=== PATIENT | female | born 1990 | race Caucasian/White ===

== ENCOUNTER 2016-09-26 07:12 | Emergency (ER) | payer OTHER ==
[~2016-09-26] VITALS: Ht 170.2 cm; Wt 92.0 kg
[~2016-09-26 07:12] MED LIST: IBUP800T23 PO
[2016-09-26 07:15] VITALS: BP 189/115; PULSE 86; RESP 16; TEMP 97.8; O2SAT 98
[2016-09-26] MEDS ORDERED: AMLO5TAB2 PO (07:32)
[2016-09-26] MEDS ORDERED: LISI10TA PO (07:32)
[2016-09-26] MEDS ORDERED: LABE100T2 PO (07:32)
[2016-09-26] MEDS ORDERED: LEXA5TAB PO (07:44)
[2016-09-26] MEDS ORDERED: LITH300C2 PO (07:44)
[2016-09-26] MEDS ORDERED: FAMOTIDINE 20 MG TAB PO ONE (07:45)
[2016-09-26] MEDS ORDERED: DICYCLOMINE HCL 10 MG CAP PO ONE (07:45)
[2016-09-26] MEDS ORDERED: SODIUM CHLORIDE 0.9% FLUSH 5 ML FLUSH IVF PRN (07:45)
[2016-09-26 07:46] LABS: AUTOMATED NEUTROPHIL # 5.1 TH/MM3 (1.8-7.7); BASOPHIL # 0.1 TH/MM3 (0-0.2); BASOPHIL % 0.9 % (0.0-2.0); EOSINOPHIL # 0.4 TH/MM3 (0-0.4); EOSINOPHIL % 5.4 % (0.0-4.0); HEMATOCRIT 36.3 % (35.0-46.0); LYMPH % 19.8 % (9.0-44.0); LYMPHOCYTE # 1.5 TH/MM3 (1.0-4.8); MEAN CELL VOLUME 77.1 FL (80.0-100.0); MEAN CORPUSCULAR HEMOGLOBIN 24.9 PG (27.0-34.0); MEAN CORPUSCULAR HGB CONC 32.3 % (32.0-36.0); MONO % 7.2 % (0.0-8.0); NEUT % 66.7 % (16.0-70.0); PLATELET COUNT 352 TH/MM3 (150-450); RED BLOOD COUNT 4.71 MIL/MM3 (4.00-5.30); RED CELL DISTRIBUTION WIDTH 14.3 % (11.6-17.2); WHITE BLOOD COUNT 7.6 TH/MM3 (4.0-11.0)
[2016-09-26 07:49] LABS: HEMO FLAGS AUTO DIFF
[2016-09-26 07:59] LABS: BACTERIA, URINE RARE /hpf; BLOOD, URINE MOD (NEG); COMMENT (UR) CULT NOT INDICATED; CULTURE IF INDICATED CULT NOT INDICATED; GLUCOSE,URINE NEG (NEG); KETONE, URINE NEG (NEG); MUCUS URINE FEW /lpf (OCC); NITRITE,URINE NEG (NEG); SQUAMOUS EPITHELIAL CELL URINE 1 /hpf (0-5); URINE COLOR YELLOW (YELLW/STRAW)
[2016-09-26] MEDS ORDERED: BENT20TA PO (08:01)
[2016-09-26] MEDS ORDERED: RANI150C PO (08:01)
--- NOTE | 2016-09-26 08:01 | PD ---
HPI Chief Complaint: Abdominal Pain Time Seen by Provider: 07:20 Travel History International Travel<30 days: No Contact w/Intl Traveler<30days: No Traveled to known affect area: No History of Present Illness HPI 26-year-old woman who presents emergency room complaining of stomach pain, ongoing for the past several weeks off and on. States she's had some intermittent diarrhea as well. Little bit of nausea but no vomiting. Appetite been normal. Waits been normal. Pain is in the mid abdomen, radiates diffusely. No urinary symptoms. No vaginal discharge or vaginal bleeding. Last initial period was 2-3 weeks ago was normal. She sexually active one male partner. Only abdominal surgical history is previous cholecystectomy. She thinks she may have a periumbilical hernia but it doesn't really bother her. No history of previous similar symptoms. No other complaints. History Past Medical History Narrative Medical Hypertension CJD Anxiety/depression Bipolar disorder Tetanus Vaccination: > 5 Years Influenza Vaccination: No LMP: 09/13/15 : 5 Para: 2 Dilation and Curettage (D&C): Yes Social History Alcohol Use: No Tobacco Use: No Allergies-Medications (Allergen,Severity, Reaction): Coded Allergies: Ceftin (Verified Allergy, Severe, 09/26/16) Cipro (Verified Allergy, Severe, 09/26/16) Sulfa (Verified Allergy, Severe, 09/26/16) Reported Meds & Prescriptions Reported Meds & Active Scripts Active Bentyl (Dicyclomine HCl) 20 Mg Tab 20 Mg PO QID PRN Ranitidine (Ranitidine HCl) 150 Mg Cap 150 Mg PO BID Reported Lexapro (Escitalopram Oxalate) 5 Mg Tab 5 Mg PO DAILY [place] Carbonate 300 Mg Cap 300 Mg PO TID Labetalol (Labetalol HCl) 100 Mg Tab 100 Mg PO BID Amlodipine (Amlodipine Besylate) 5 Mg Tab 5 Mg PO DAILY Lisinopril-Hctz 10-12.5 Mg Tab 1 Tab PO DAILY Review of Systems Except as stated in HPI: all other systems reviewed are Neg Physical Exam Narrative GENERAL: Well-appearing 26 year-old woman, no acute distress. SKIN: Warm and dry. CARDIOVASCULAR: Regular rate and rhythm. No murmur appreciated. RESPIRATORY: No accessory muscle use. Clear to auscultation. Breath sounds equal bilaterally. GASTROINTESTINAL: Abdomen soft, non-tender, nondistended. Hepatic and splenic margins not palpable. MUSCULOSKELETAL: No obvious deformities. No clubbing. No cyanosis. No edema. NEUROLOGICAL: Awake and alert. No obvious cranial nerve deficits. Motor grossly within normal limits. Normal speech. PSYCHIATRIC: Appropriate mood and affect; insight and judgment normal. Data Data Last Documented VS Vital Signs Date Time Temp Pulse Resp B/P Pulse Ox O2 Delivery O2 Flow Rate FiO2 09/26/16 07:15 97.8 86 16 189/115 98 Room Air Orders Complete Blood Count With Diff (09/26/16 07:32) Comprehensive Metabolic Panel (09/26/16 07:32) Lipase (09/26/16 07:32) Urinalysis - C+S If Indicated (09/26/16 07:32) Iv Access Insert/Monitor (09/26/16 07:32) Sodium Chloride 0.9% Flush (Ns Flush) (09/26/16 07:45) Ed Urine Pregnancytest Poc (09/26/16 07:32) Dicyclomine (Bentyl) (09/26/16 07:45) Famotidine (Pepcid) (09/26/16 07:45) Labs Laboratory Tests Test 09/26/16 07:41 White Blood Count 7.6 TH/MM3 Red Blood Count 4.71 MIL/MM3 Hemoglobin 11.7 GM/DL Hematocrit 36.3 % Mean Corpuscular Volume 77.1 FL Mean Corpuscular Hemoglobin 24.9 PG Mean Corpuscular Hemoglobin 32.3 % Concent Red Cell Distribution Width 14.3 % Platelet Count 352 TH/MM3 Mean Platelet Volume 8.3 FL Neutrophils (%) (Auto) 66.7 % Lymphocytes (%) (Auto) 19.8 % Monocytes (%) (Auto) 7.2 % Eosinophils (%) (Auto) 5.4 % Basophils (%) (Auto) 0.9 % Neutrophils # (Auto) 5.1 TH/MM3 Lymphocytes # (Auto) 1.5 TH/MM3 Monocytes # (Auto) 0.5 TH/MM3 Eosinophils # (Auto) 0.4 TH/MM3 Basophils # (Auto) 0.1 TH/MM3 CBC Comment AUTO DIFF Differential Comment AUTO DIFF CONFIRMED Platelet Estimate NORMAL Platelet Morphology Comment NORMAL Red Cell Morphology Comment NORMAL Urine Color YELLOW Urine Turbidity CLEAR Urine pH 8.0 Urine Specific [place] 1.013 Urine Protein 30 mg/dL Urine Glucose (UA) NEG mg/dL Urine Ketones NEG mg/dL Urine Occult Blood MOD Urine Nitrite NEG Urine Bilirubin NEG Urine Urobilinogen LESS THAN 2.0 MG/DL Urine Leukocyte Esterase NEG Urine RBC 12 /hpf Urine WBC 1 /hpf Urine Squamous Epithelial 1 /hpf Cells Urine Bacteria RARE /hpf Urine Mucus FEW /lpf Microscopic Urinalysis Comment CULT NOT INDICATED Sodium Level 139 MEQ/L Potassium Level 3.4 MEQ/L Chloride Level 106 MEQ/L Carbon Dioxide Level 27.2 MEQ/L Anion Gap 6 MEQ/L Blood Urea Nitrogen 6 MG/DL Creatinine 0.63 MG/DL Estimat Glomerular Filtration 113 ML/MIN Rate Random Glucose 97 MG/DL Calcium Level 8.5 MG/DL Total Bilirubin 0.3 MG/DL Aspartate Amino Transf 4 U/L (AST/SGOT) Alanine Aminotransferase 13 U/L (ALT/SGPT) Alkaline Phosphatase 82 U/L Total Protein 7.3 GM/DL Albumin 3.4 GM/DL Lipase 90 U/L [facility] Medical Decision Making Medical Screen Exam Complete: Yes Emergency Medical Condition: Yes Interpretation(s) LABS: CBC is unremarkable. CMP is unremarkable. Lipase is normal. UA was some hematuria. Some protein. Differential Diagnosis Enteritis, colitis, functional abdominal pain, IBD, IBS, other Narrative Course Medical decision making 26-year-old woman with abdominal pain, diarrhea, looks well. Benign exam. We' ll check screening labs. Supportive treatment. FINAL: Labs unremarkable with exception of some hematuria. Probably contaminant. Patient does have some chronic kidney disease. Discussed this with her and she will follow-up. Diagnosis Primary Impression: Abdominal pain Qualified Code: R10.84 - Generalized abdominal pain Additional Instructions: Take Bentyl and ranitidine as prescribed. Follow-up with your regular doctor if you're not completely well in the next 5- 7 days. Return to emergency department for any worsening abdominal pain, high fevers, bloody diarrhea, or any other new or worsening symptoms. Med/Other Pt SpecificInfo: Prescription(s) given Scripts Dicyclomine (Bentyl)20 Mg Tab20 Mg PO QID PRN (ABDOMINAL CRAMPING) #20 TAB Prov:Dariel Davila MD 09/26/16 Ranitidine 150 Mg [id number] Mg PO BID #60 CAP Prov:Dariel Davila MD 09/26/16 Disposition: 01 DISCHARGE HOME Condition: Stable Dariel Davila MD Sep 26, 2016 08:01
[2016-09-26 08:05] LABS: ANION GAP 6 MEQ/L (5-15); AST (GOT) 4 U/L (15-37); BICARBONATE 27.2 MEQ/L (21.0-32.0); BLOOD UREA NITROGEN 6 MG/DL (7-18); CHLORIDE 106 MEQ/L (98-107); GLOMERULAR FILTRATION RATE 113 ML/MIN (>89); POTASSIUM 3.4 MEQ/L (3.5-5.1); SODIUM (NA) 139 MEQ/L (136-145)
[2016-09-26 08:08] LABS: ALKALINE PHOSPHATASE 82 U/L (45-117); ALT (GPT) 13 U/L (10-53); TOTAL BILIRUBIN ADULT 0.3 MG/DL (0.2-1.0)
[2016-09-26 08:34] LABS: PLATELET ESTIMATE SMEAR NORMAL (NORMAL); PLATELET MORPHOLOGY NORMAL (NORMAL); SCAN/DIFF AUTO DIFF CONFIRMED
== END 2016-09-26 09:46 | disposition home or self-care (01) ==
LOC: NEPE 07:12
DX: R10.9 Unspecified abdominal pain (principal); I12.9 Hypertensive chronic kidney disease with stage 1 through stage 4 chronic kidney disease, or unspecified chronic kidney disease; N18.9 Chronic kidney disease, unspecified
CPT/HCPCS: 80053; 81001; 83690; 84703; 85025; 99284

== ENCOUNTER 2016-09-28 20:52 | Emergency (ER) | payer OTHER ==
[~2016-09-28] VITALS: Ht 170.2 cm; Wt 90.9 kg
[~2016-09-28 20:52] MED LIST changes: +AMLO5TAB2 PO; +BENT20TA PO; -IBUP800T23 PO; +LABE100T2 PO; +LEXA5TAB PO; +LISI10TA PO; +LITH300C2 PO; +RANI150C PO
[2016-09-28 20:53] VITALS: BP 171/101; PULSE 89; RESP 16; TEMP 97.8; O2SAT 96
[2016-09-28 21:57] LABS: BACTERIA, URINE OCC /hpf; BLOOD, URINE MOD (NEG); COMMENT (UR) CULT NOT INDICATED; CULTURE IF INDICATED CULT NOT INDICATED; GLUCOSE,URINE NEG (NEG); HYALINE CAST, URINE 5 /lpf (RARE); KETONE, URINE TRACE mg/dL (NEG); MUCUS URINE MANY /lpf (OCC); NITRITE,URINE NEG (NEG); PH, URINE 5.5 (5.0-8.5); SQUAMOUS EPITHELIAL CELL URINE 3 /hpf (0-5); URINE COLOR YELLOW (YELLW/STRAW)
[2016-09-29 00:27] LABS: HEMATOCRIT 36.7 % (35.0-46.0); MEAN CELL VOLUME 75.7 FL (80.0-100.0); MEAN CORPUSCULAR HEMOGLOBIN 25.1 PG (27.0-34.0); MEAN CORPUSCULAR HGB CONC 33.1 % (32.0-36.0); PLATELET COUNT 377 TH/MM3 (150-450); RED BLOOD COUNT 4.85 MIL/MM3 (4.00-5.30); RED CELL DISTRIBUTION WIDTH 14.3 % (11.6-17.2); REVIEW FLAG FINAL; WHITE BLOOD COUNT 11.1 TH/MM3 (4.0-11.0)
[2016-09-29 00:43] LABS: BICARBONATE 28.9 MEQ/L (21.0-32.0); POTASSIUM 3.4 MEQ/L (3.5-5.1)
[2016-09-29] MEDS ORDERED: LIDOCAINE VISCOUS 2% SOLN 15 ML UDC PO ONE (01:15)
[2016-09-29] MEDS ORDERED: ONDANSETRON HCL 4 MG/2 ML VIAL IM ONE (01:15)
[2016-09-29] MEDS ORDERED: ALUMINUM/MAGNESIUM/SIMETH 30 ML CUP PO ONE (01:15)
[2016-09-29] MEDS ORDERED: DICYCLOMINE HCL 10 MG CAP PO ONE (01:15)
[2016-09-29 01:24] LABS: INDIRECT BILIRUBIN 0.2 MG/DL (0.0-0.8); TOTAL BILIRUBIN ADULT 0.3 MG/DL (0.2-1.0)
[2016-09-29] MEDS ORDERED: LOMO2.5T PO (02:19)
--- NOTE | 2016-09-29 02:19 | PD ---
HPI Chief Complaint: Abdominal Pain Time Seen by Provider: 00:46 Travel History International Travel<30 days: No Contact w/Intl Traveler<30days: No Traveled to known affect area: No History of Present Illness HPI 26-year-old female arrives with abdominal pain. It has been present for weeks. She was seen and evaluated here for the same complaint a few days ago. Blood work including a CMP and lipase and urinalysis and urine were normal. She was sent home with Bentyl and Zantac. She reports marginal improvement with each. She's had no fever nausea or vomiting. She has had burning diarrhea , nonbloody. She reports a history of hernia diagnosed on CT scan. She cannot feel a bulge or mass on her abdominal wall or groin. She offers no urinary complaint. Last menstruation was about 3-1/2 weeks prior. No vaginal bleeding or discharge. Appetite is slightly decreased due to pain with eating. Pain seems to be better at night while she is sleeping. PFSH Past Medical History Bipolar Disorder: Yes Diminished Hearing: No Hypertension: Yes Inguinal Hernia: Yes Psychiatric: Yes Tetanus Vaccination: Unknown Influenza Vaccination: No ?: Not LMP: Sep 06 : 5 Para: 2 Miscarriage: 1 : 2 Dilation and Curettage (D&C): Yes Past Surgical History Cholecystectomy: Yes Ear Surgery: Yes (TUBES ) Tonsillectomy: Yes (T&A) Social History Alcohol Use: No Tobacco Use: No Substance Use: No Allergies-Medications (Allergen,Severity, Reaction): Coded Allergies: Ceftin (Verified Allergy, Severe, 09/26/16) Cipro (Verified Allergy, Severe, 09/26/16) Sulfa (Verified Allergy, Severe, 09/26/16) Reported Meds & Prescriptions Reported Meds & Active Scripts Active Lomotil (Diphenoxylate-Atropine) 2.5-0.025 Mg Tab 1 Tab PO Q6H PRN Bentyl (Dicyclomine HCl) 20 Mg Tab 20 Mg PO QID PRN Ranitidine (Ranitidine HCl) 150 Mg Cap 150 Mg PO BID Reported Lexapro (Escitalopram Oxalate) 5 Mg Tab 5 Mg PO DAILY [place] Carbonate 300 Mg Cap 300 Mg PO TID Labetalol (Labetalol HCl) 100 Mg Tab 100 Mg PO BID Amlodipine (Amlodipine Besylate) 5 Mg Tab 5 Mg PO DAILY Lisinopril-Hctz 10-12.5 Mg Tab 1 Tab PO DAILY Review of Systems Except as stated in HPI: all other systems reviewed are Neg General / Constitutional: No: Fever, Chills Gastrointestinal: Positive: Diarrhea, Abdominal Pain Physical Exam Narrative GENERAL: 26-year-old female, well-nourished well-developed no acute distress SKIN: Warm and dry. HEAD: Atraumatic. Normocephalic. EYES: Pupils equal and round. No scleral icterus. No injection or drainage. ENT: No nasal bleeding or discharge. Mucous membranes pink and moist. NECK: Trachea midline. No JVD. CARDIOVASCULAR: Regular rate and rhythm. No murmur appreciated. RESPIRATORY: No accessory muscle use. Clear to auscultation. Breath sounds equal bilaterally. GASTROINTESTINAL: Abdomen is soft. There is no appreciable hernia or abdominal wall defect. There is minimal tenderness in the epigastrium. No tenderness in the right upper quadrant/negative Thurman sign as of the expected; history of cholecystectomy years ago. No tenderness at McBurney's point MUSCULOSKELETAL: No obvious deformities. No clubbing. No cyanosis. No edema. NEUROLOGICAL: Awake and alert. No obvious cranial nerve deficits. Motor grossly within normal limits. Normal speech. PSYCHIATRIC: Appropriate mood and affect; insight and judgment normal. Data Data Last Documented VS Vital Signs Date Time Temp Pulse Resp B/P Pulse Ox O2 Delivery O2 Flow Rate FiO2 09/29/16 00:55 16 09/28/16 20:53 97.8 89 171/101 96 Room Air Mild hypertension observed which improved during ER stay Orders Urinalysis - C+S If Indicated (09/28/16 21:01) Cbc No Diff, Includes Plts (09/29/16 00:12) Basic Metabolic Panel (Bmp) (09/29/16 00:12) Hepatic Functional Panel (09/29/16 00:57) Lipase (09/29/16 00:57) Ondansetron Inj (Zofran Inj) (09/29/16 01:15) Dicyclomine (Bentyl) (09/29/16 01:15) Al-Mag Hy-Si 40-40-4 Mg/Ml Liq (Mag-Al P (09/29/16 01:15) Lidocaine 2% Viscous (Xylocaine 2% Visco (09/29/16 01:15) Labs Laboratory Tests Test 09/28/16 09/29/16 21:08 00:12 Urine Color YELLOW Urine Turbidity HAZY Urine pH 5.5 Urine Specific [place] 1.026 Urine Protein 100 mg/dL Urine Glucose (UA) NEG mg/dL Urine Ketones TRACE mg/dL Urine Occult Blood MOD Urine Nitrite NEG Urine Bilirubin NEG Urine Urobilinogen 2.0 MG/DL Urine Leukocyte Esterase NEG Urine RBC 23 /hpf Urine WBC 3 /hpf Urine Squamous Epithelial 3 /hpf Cells Urine Bacteria OCC /hpf Urine Hyaline Casts 5 /lpf Urine Mucus MANY /lpf Microscopic Urinalysis Comment CULT NOT INDICATED White Blood Count 11.1 TH/MM3 Red Blood Count 4.85 MIL/MM3 Hemoglobin 12.2 GM/DL Hematocrit 36.7 % Mean Corpuscular Volume 75.7 FL Mean Corpuscular Hemoglobin 25.1 PG Mean Corpuscular Hemoglobin 33.1 % Concent Red Cell Distribution Width 14.3 % Platelet Count 377 TH/MM3 Mean Platelet Volume 8.5 FL Sodium Level 141 MEQ/L Potassium Level 3.4 MEQ/L Chloride Level 105 MEQ/L Carbon Dioxide Level 28.9 MEQ/L Anion Gap 7 MEQ/L Blood Urea Nitrogen 9 MG/DL Creatinine 0.61 MG/DL Estimat Glomerular Filtration 118 ML/MIN Rate Random Glucose 91 MG/DL Calcium Level 8.9 MG/DL Total Bilirubin 0.3 MG/DL Direct Bilirubin 0.1 MG/DL Indirect Bilirubin 0.2 MG/DL Aspartate Amino Transf 4 U/L (AST/SGOT) Alanine Aminotransferase 14 U/L (ALT/SGPT) Alkaline Phosphatase 89 U/L Total Protein 8.3 GM/DL Albumin 4.0 GM/DL Lipase 92 U/L [facility] Medical Decision Making Medical Screen Exam Complete: Yes Emergency Medical Condition: Yes Differential Diagnosis Constipation, Gastritis, Acute Cholecystitis, Biliary Colic, Pancreatitis, CONTE , Hepatitis, Bowel Obstruction, Cystitis, Mesenteric Ischemia, AAA, Appendicitis , Renal Stone/Hydronephrosis, GERD, perforated viscous Narrative Course CBC & BMP Diagram 09/29/16 00:12 LFTs normal Lipase 92 Urinalysis hematuria The abdomen exam is quite benign aside from minimal tenderness to deep palpation in the high epigastrium. She reports a history of a hernia diagnosed by CT. In the absence of abdominal wall hernia on exam tidal hernia is considered. She reports some improvement after GI cocktail with lidocaine and Maalox. Gastritis/peptic ulcer disease is considered in this scenario. Although this is a repeat visit for essentially the same complaint CT scan with a benign abdominal exam and a 26-year-old female with essentially normal blood work is considered low diagnostic utility. We discussed return precautions as well as follow-up plan and dietary/lifestyle change. Patient appeared receptive during discussion. Diagnosis Primary Impression: Abdominal pain Qualified Code: R10.13 - Epigastric pain Additional Impression: Hypokalemia Referrals: Mary Kemp MD call for appointment Additional Instructions: You have a choice when it comes to health care, and we are glad that you chose [facility]. Hopefully, we have met your expectations on today's visit. You are welcome to return to [facility] at any time, as we are committed to meeting the health care needs of our community. Med/Other Pt SpecificInfo: Prescription(s) given Scripts Diphenoxylate-Atropine (Lomotil)2.5-0.025 Mg Tab1 Tab PO Q6H PRN (DIARRHEA) #4 TAB Ref 0 Prov:Drew Urbina MD 09/29/16 Disposition: DISCHARGE HOME Condition: Stable Drew Urbina MD Sep 29, 2016 02:19
== END 2016-09-29 03:08 | disposition home or self-care (01) ==
LOC: NEPE 20:52
DX: R10.13 Epigastric pain (principal); E87.6 Hypokalemia; R63.0 Anorexia; I10 Essential (primary) hypertension
CPT/HCPCS: 80048; 80076; 81001; 83690; 85027; 96372; 99284; J2405

== ENCOUNTER 2017-03-21 21:17 | Emergency (ER) | payer MEDICAID, OTHER ==
[~2017-03-21] VITALS: Ht 170.2 cm; Wt 85.0 kg
[~2017-03-21 21:17] MED LIST changes: +LOMO2.5T PO
[2017-03-21 21:18] VITALS: BP 184/111; PULSE 82; RESP 16; TEMP 98.7; O2SAT 97
[2017-03-21] MEDS ORDERED: BUSP10TA PO (22:14)
[2017-03-21] MEDS ORDERED: METO50TA PO (22:14)
--- NOTE | 2017-03-21 22:22 | PD ---
HPI . Urinary symptoms Chief Complaint: Complaint Time Seen by Provider: 22:08 Travel History International Travel<30 days: No Contact w/Intl Traveler<30days: No Traveled to known affect area: No History of Present Illness HPI Patient presents with a 2 day history of dysuria, frequency, urgency and feeling like she is incompletely emptying her bladder. No modifying factors. No treatment prior to arrival. No fever. No vomiting. PFSH Past Medical History Arthritis: Yes Bipolar Disorder: Yes Anxiety: Yes Depression: Yes Diminished Hearing: No Hypertension: Yes Inguinal Hernia: Yes Psychiatric: Yes (PTSD, AUDITORY PROCESSING DISORDER) ?: Not LMP: 02/19/17 : 5 Para: 2 Miscarriage: 1 : 2 Dilation and Curettage (D&C): Yes Past Surgical History Cholecystectomy: Yes Ear Surgery: Yes (TUBES ) Tonsillectomy: Yes (T&A) Tympanostomy Tube: Yes Social History Alcohol Use: No Tobacco Use: Yes (8 CIGS PER DAY) Substance Use: No Allergies-Medications (Allergen,Severity, Reaction): Coded Allergies: Ceftin (Verified Allergy, Severe, 09/26/16) Cipro (Verified Allergy, Severe, 09/26/16) Sulfa (Verified Allergy, Severe, 09/26/16) Reported Meds & Prescriptions Reported Meds & Active Scripts Active Reported Buspirone (Buspirone HCl) 10 Mg Tab 10 Mg PO BID Metoprolol Tartrate 50 Mg Tab 50 Mg PO BID Lexapro (Escitalopram Oxalate) 5 Mg Tab 5 Mg PO DAILY [place] Carbonate 300 Mg Cap 300 Mg PO TID Labetalol (Labetalol HCl) 100 Mg Tab 100 Mg PO BID Amlodipine (Amlodipine Besylate) 5 Mg Tab 5 Mg PO DAILY Lisinopril-Hctz 10-12.5 Mg Tab 1 Tab PO DAILY Review of Systems Except as stated in HPI: all other systems reviewed are Neg General / Constitutional: No: Fever, Chills Gastrointestinal: No: Nausea, Vomiting Genitourinary: Positive: Urgency, Frequency, Dysuria Physical Exam Narrative GENERAL: Awake and alert and in no acute distress. SKIN: Warm and dry. HEAD: Atraumatic. Normocephalic. EYES: Pupils equal and round. NECK: Trachea midline. CARDIOVASCULAR: Regular rate and rhythm. RESPIRATORY: No accessory muscle use. GI/: No CVA tenderness. Mild suprapubic tenderness. MUSCULOSKELETAL: No obvious deformities. No edema. NEUROLOGICAL: Awake and alert. No obvious cranial nerve deficits. Motor grossly within normal limits. Normal speech. PSYCHIATRIC: Appropriate mood and affect; insight and judgment normal. Data Data Last Documented VS Vital Signs Date Time Temp Pulse Resp B/P Pulse Ox O2 Delivery O2 Flow Rate FiO2 03/21/17 21:18 98.7 82 16 184/111 97 Room Air Orders Urinalysis - C+S If Indicated (03/21/17 22:09) Ed Urine Pregnancytest Poc (03/21/17 22:09) Urine Culture (03/21/17 22:10) Labs Laboratory Tests Test 03/21/17 22:10 Urine Color YELLOW Urine Turbidity HAZY Urine pH 5.5 Urine Specific [place] 1.033 Urine Protein 100 mg/dL Urine Glucose (UA) NEG mg/dL Urine Ketones NEG mg/dL Urine Occult Blood MOD Urine Nitrite POS Urine Bilirubin NEG Urine Urobilinogen 2.0 MG/DL Urine Leukocyte Esterase LARGE Urine RBC 86 /hpf Urine WBC 171 /hpf Urine Squamous Epithelial 9 /hpf Cells Urine Amorphous Sediment RARE Urine Bacteria MANY /hpf Urine Mucus MANY /lpf Microscopic Urinalysis Comment CULTURE INDICATED MDM Medical Decision Making Medical Screen Exam Complete: Yes Emergency Medical Condition: Yes Differential Diagnosis Final differential diagnosis of urinary symptoms includes but is not limited to UTI, kidney stone, pyelonephritis, bacterial vaginosis, yeast infection, urinary retention Narrative Course Patient presents with a 2 day history of symptoms consistent with a UTI. UA and ECG are pending. UA>>mod occult blood, pos nitrite, large LE, 86 RBCs, 171 WBCs, many bact. This patient will be treated with Macrobid and Pyridium. Diagnosis Primary Impression: Urinary tract infection Qualified Code: N30.00 - Acute cystitis without hematuria Patient Instructions: General Instructions, Urinary Tract Infection in Women ( [place]) Med/Other Pt SpecificInfo: Prescription(s) given Scripts Phenazopyridine (Pyridium)100 Mg [id number] Mg PO Q8HR #10 TAB Ref 0 Prov:Brandie Fung MD 03/21/17 Nitrofurantoin Monohydrate Macrocrystals (Macrobid)100 Mg [id number] Mg PO BID 5 Days Ref 0 Prov:Brandie Fung MD 03/21/17 Disposition: 01 DISCHARGE HOME Condition: Stable Brandie Fung MD Mar 21, 2017 22:22
[2017-03-21 22:39] LABS: BACTERIA, URINE MANY /hpf; BLOOD, URINE MOD (NEG); COMMENT (UR) CULTURE INDICATED; CULTURE IF INDICATED CULTURE INDICATED; GLUCOSE,URINE NEG (NEG); KETONE, URINE NEG (NEG); MUCUS URINE MANY /lpf (OCC); NITRITE,URINE POS (NEG); PH, URINE 5.5 (5.0-8.5); SQUAMOUS EPITHELIAL CELL URINE 9 /hpf (0-5); URINE COLOR YELLOW (YELLW/STRAW)
[2017-03-21] MEDS ORDERED: NITROFURANTOIN MONOHYD MACROCR 100 MG CAP PO ONE (22:45)
[2017-03-21] MEDS ORDERED: PHENAZOPYRIDINE HCL 200 MG TAB PO ONE (22:45)
[2017-03-21] MEDS ORDERED: PHEN0.4T PO (22:46)
[2017-03-21] MEDS ORDERED: MACR100C2 PO (22:46)
== END 2017-03-21 23:17 | disposition home or self-care (01) ==
LOC: NEPD 21:17
DX: N39.0 Urinary tract infection, site not specified (principal); M13.80 Other specified arthritis, unspecified site; F31.9 Bipolar disorder, unspecified; I10 Essential (primary) hypertension; F43.10 Post-traumatic stress disorder, unspecified; F17.210 Nicotine dependence, cigarettes, uncomplicated; Z79.899 Other long term (current) drug therapy; Z88.2 Allergy status to sulfonamides; Z88.1 Allergy status to other antibiotic agents
CPT/HCPCS: 81001; 84703; 87077; 87086; 87186; 99284

== ENCOUNTER 2017-10-04 01:23 | Emergency (ER) | payer MEDICAID ==
[~2017-10-04] VITALS: Ht 170.2 cm; Wt 85.0 kg
[~2017-10-04 01:23] MED LIST changes: -BENT20TA PO; +BUSP10TA PO; -LOMO2.5T PO; +MACR100C2 PO; +METO50TA PO; +PHEN0.4T PO; -RANI150C PO
[2017-10-04] MEDS ORDERED: IOHEXOL 350 MG/ML 10 ML VIAL (for RAD DIAG) IVCONTRAST ONE (01:24)
[2017-10-04 01:28] VITALS: BP 169/112; PULSE 103; RESP 20; TEMP 97.7; O2SAT 99
[2017-10-04] MEDS ORDERED: SODIUM CHLORIDE 0.9% FLUSH 10 ML FLUSH IV FLUSH PRN (02:00)
[2017-10-04 02:13] VITALS: RESP 16; O2SAT 98
--- NOTE | 2017-10-04 02:20 | PD ---
HPI Chief Complaint: Abdominal Pain Time Seen by Provider: 02:16 Travel History International Travel<30 days: No Contact w/Intl Traveler<30days: No Traveled to known affect area: No History of Present Illness HPI 27-year-old female patient presents to the ER today for 1 day of abdominal pains , nausea and vomiting. She states the pain radiates up to the chest area. She denies any diarrhea, fevers, or any other symptoms. She states the pain is currently a 5 out of 10. She does not know any exacerbating or alleviating factors. Modifying Factors: None Associated Signs & Symptoms: Abdominal pain, nausea and vomiting Risk Factors: None PFSH Past Medical History Arthritis: Yes Bipolar Disorder: Yes Anxiety: Yes Depression: Yes Diminished Hearing: No Hypertension: Yes Inguinal Hernia: Yes Musculoskeletal: Yes (DEGENERATIVE DISK DISORDER) Psychiatric: Yes (PTSD, AUDITORY PROCESSING DISORDER) ?: Unknown LMP: 09/27/17 : 5 Para: 2 Miscarriage: 1 : 2 Dilation and Curettage (D&C): Yes Past Surgical History Cholecystectomy: Yes Ear Surgery: Yes (TUBES ) Tonsillectomy: Yes (T&A) Tympanostomy Tube: Yes Social History Alcohol Use: No Tobacco Use: Yes Substance Use: No Allergies-Medications (Allergen,Severity, Reaction): Coded Allergies: Sulfa (Sulfonamide Antibiotics) (Unverified Allergy, Severe, 10/04/17) cefuroxime (Unverified Allergy, Severe, 10/04/17) ciprofloxacin (Unverified Allergy, Severe, 10/04/17) Reported Meds & Prescriptions Reported Meds & Active Scripts Active Reported Buspirone (Buspirone HCl) 10 Mg Tab 10 Mg PO BID Metoprolol Tartrate 50 Mg Tab 50 Mg PO BID Lexapro (Escitalopram Oxalate) 5 Mg Tab 5 Mg PO DAILY [place] Carbonate 300 Mg Cap 300 Mg PO TID Labetalol (Labetalol HCl) 100 Mg Tab 100 Mg PO BID Amlodipine (Amlodipine Besylate) 5 Mg Tab 5 Mg PO DAILY Lisinopril-Hctz 10-12.5 Mg Tab 1 Tab PO DAILY Review of Systems Except as stated in HPI: all other systems reviewed are Neg Physical Exam Narrative GENERAL: Well-developed young female patient currently in mild distress. Awake and oriented 3. SKIN: Focused skin assessment warm/dry. HEAD: Atraumatic. Normocephalic. EYES: Pupils equal and round. No scleral icterus. No injection or drainage. ENT: No nasal bleeding or discharge. Mucous membranes pink and moist. NECK: Trachea midline. No JVD. Supple. CARDIOVASCULAR: Regular rate and rhythm. No murmur appreciated. RESPIRATORY: No accessory muscle use. Clear to auscultation. Breath sounds equal bilaterally. GASTROINTESTINAL: Abdomen soft, non-tender, nondistended. Hepatic and splenic margins not palpable. MUSCULOSKELETAL: No obvious deformities. No clubbing. No cyanosis. No edema. NEUROLOGICAL: Awake and alert. No obvious cranial nerve deficits. Motor grossly within normal limits. Normal speech. PSYCHIATRIC: Appropriate mood and affect; insight and judgment normal. Data Data Last Documented VS Vital Signs Date Time Temp Pulse Resp B/P (MAP) Pulse Ox O2 Delivery O2 Flow Rate FiO2 10/04/17 02:13 16 98 Room Air 10/04/17 01:28 97.7 103 Orders Orders Complete Blood Count With Diff (10/04/17 01:56) Comprehensive Metabolic Panel (10/04/17 01:56) Lipase (10/04/17 01:56) Urinalysis - C+S If Indicated (10/04/17 01:56) Iv Access Insert/Monitor (10/04/17 01:56) Ecg Monitoring (10/04/17 01:56) Oximetry (10/04/17 01:56) Sodium Chloride 0.9% Flush (Ns Flush) (10/04/17 02:00) Ed Urine Pregnancytest Poc (10/04/17 01:56) Sodium Chlor 0.9% 1000 Ml Inj (Ns 1000 M (10/04/17 02:30) Ondansetron Inj (Zofran Inj) (10/04/17 02:30) Ct Abd/Pel W Iv Contrast(Rout) (10/04/17 02:55) Iohexol 350 Inj (Omnipaque 350 Inj) (10/04/17 01:24) Labs Laboratory Tests Test 10/04/17 02:00 10/04/17 02:10 Urine Color YELLOW Urine Turbidity CLEAR Urine pH 7.0 Urine Specific [place] 1.026 Urine Protein 100 mg/dL Urine Glucose (UA) NEG mg/dL Urine Ketones NEG mg/dL Urine Occult Blood MOD Urine Nitrite NEG Urine Bilirubin NEG Urine Urobilinogen 4.0 MG/DL Urine Leukocyte Esterase NEG Urine RBC 62 /hpf Urine WBC 3 /hpf Urine Squamous Epithelial Cells 3 /hpf Urine Bacteria OCC /hpf Urine Mucus MANY /lpf Urine Yeast (Budding) OCC Microscopic Urinalysis Comment CULT NOT INDICATED White Blood Count 13.4 TH/MM3 Red Blood Count 4.89 MIL/MM3 Hemoglobin 12.0 GM/DL Hematocrit 36.2 % Mean Corpuscular Volume 74.2 FL Mean Corpuscular Hemoglobin 24.6 PG Mean Corpuscular Hemoglobin Concent 33.1 % Red Cell Distribution Width 15.4 % Platelet Count 337 TH/MM3 Mean Platelet Volume 8.0 FL Neutrophils (%) (Auto) 90.9 % Lymphocytes (%) (Auto) 4.2 % Monocytes (%) (Auto) 3.2 % Eosinophils (%) (Auto) 1.2 % Basophils (%) (Auto) 0.5 % Neutrophils # (Auto) 12.2 TH/MM3 Lymphocytes # (Auto) 0.6 TH/MM3 Monocytes # (Auto) 0.4 TH/MM3 Eosinophils # (Auto) 0.2 TH/MM3 Basophils # (Auto) 0.1 TH/MM3 CBC Comment DIFF FINAL Differential Comment Blood Urea Nitrogen 12 MG/DL Creatinine 0.58 MG/DL Random Glucose 100 MG/DL Total Protein 7.7 GM/DL Albumin 3.6 GM/DL Calcium Level 8.4 MG/DL Alkaline Phosphatase 70 U/L Aspartate Amino Transf (AST/SGOT) 4 U/L Alanine Aminotransferase (ALT/SGPT) 10 U/L Total Bilirubin 0.6 MG/DL Sodium Level 141 MEQ/L Potassium Level 3.4 MEQ/L Chloride Level 107 MEQ/L Carbon Dioxide Level 26.8 MEQ/L Anion Gap 7 MEQ/L Estimat Glomerular Filtration Rate 124 ML/MIN Lipase 112 U/L MDM Medical Decision Making Medical Screen Exam Complete: Yes Emergency Medical Condition: Yes Medical Record Reviewed: Yes Interpretation(s) Laboratory Tests Test 10/04/17 02:00 10/04/17 02:10 Urine Protein 100 mg/dL (NEG-TRACE) Urine Occult Blood MOD (NEG) Urine Urobilinogen 4.0 MG/DL (LESS THAN Urine RBC 62 /hpf (0-3) Urine Bacteria OCC /hpf (NONE) Urine Mucus MANY /lpf (OCC) Urine Yeast (Budding) OCC (NONE) White Blood Count 13.4 TH/MM3 (4.0-11.0) Mean Corpuscular Volume 74.2 FL (80.0-100.0) Mean Corpuscular Hemoglobin 24.6 PG (27.0-34.0) Neutrophils (%) (Auto) 90.9 % (16.0-70.0) Lymphocytes (%) (Auto) 4.2 % (9.0-44.0) Neutrophils # (Auto) 12.2 TH/MM3 (1.8-7.7) Lymphocytes # (Auto) 0.6 TH/MM3 (1.0-4.8) Calcium Level 8.4 MG/DL (8.5-10.1) Aspartate Amino Transf (AST/SGOT) 4 U/L (15-37) Potassium Level 3.4 MEQ/L (3.5-5.1) Last 24 hours Impressions Abdomen/Pelvis CT 10/04/17 0255 Signed Impressions: Service Date/Time: Wednesday, October 04, 2017 03:10 - CONCLUSION: 1. No acute findings. Previous cholecystectomy. Margarito Richardson MD Differential Diagnosis Upper abdominal pain, nausea, vomiting: Gastritis versus gastroenteritis versus dehydration versus metabolic issues Narrative Course Lab work shows leukocytosis. There are some occasional bacteria knees, possible underlying UTI and yeast infection. My plan would be to treat it. CAT scan did not show any signs of acute intra-abdominal processes. At this point, my plan would be to release the patient would follow-up to primary care doctor. We will give her symptomatic relief or nausea and vomiting as well. The plan was discussed with her and she states understanding. Diagnosis Primary Impression: Abdominal pain Med/Other Pt SpecificInfo: Prescription(s) given Scripts Fluconazole (Diflucan) 150 Mg Tab 150 MG PO ONCE for Infection, #1 TAB 0 Refills Prov: Chelsey Collins MD 10/04/17 Ondansetron Odt (Zofran Odt) 4 Mg Tab 4 MG SL Q6HR Y for Nausea/Vomiting, #7 TAB 0 Refills Prov: Chelsey Collins MD 10/04/17 Nitrofurantoin Monohydrate Macrocrystals (Macrobid) 100 Mg Cap 100 MG PO BID for Infection for 5 Days, CAP 0 Refills Prov: Chelsey Collins MD 10/04/17 Disposition: 01 DISCHARGE HOME Condition: Stable Chelsey Collins MD Oct 04, 2017 02:20
[2017-10-04 02:21] LABS: AUTOMATED NEUTROPHIL # 12.2 TH/MM3 (1.8-7.7); BASOPHIL # 0.1 TH/MM3 (0-0.2); BASOPHIL % 0.5 % (0.0-2.0); EOSINOPHIL # 0.2 TH/MM3 (0-0.4); EOSINOPHIL % 1.2 % (0.0-4.0); HEMATOCRIT 36.2 % (35.0-46.0); LYMPH % 4.2 % (9.0-44.0); LYMPHOCYTE # 0.6 TH/MM3 (1.0-4.8); MEAN CELL VOLUME 74.2 FL (80.0-100.0); MEAN CORPUSCULAR HEMOGLOBIN 24.6 PG (27.0-34.0); MEAN CORPUSCULAR HGB CONC 33.1 % (32.0-36.0); MONO % 3.2 % (0.0-8.0); MONOCYTE # 0.4 TH/MM3 (0-0.9); NEUT % 90.9 % (16.0-70.0); PLATELET COUNT 337 TH/MM3 (150-450); RED BLOOD COUNT 4.89 MIL/MM3 (4.00-5.30); RED CELL DISTRIBUTION WIDTH 15.4 % (11.6-17.2); WHITE BLOOD COUNT 13.4 TH/MM3 (4.0-11.0)
[2017-10-04] MEDS ORDERED: SODIUM CHLOR 0.9% 1000 ML INJ 1,000 ML IV ONE (02:30)
[2017-10-04] MEDS ORDERED: ONDANSETRON HCL 4 MG/2 ML VIAL IV PUSH ONE (02:30)
[2017-10-04 02:31] LABS: BACTERIA, URINE OCC /hpf; BILIRUBIN, URINE NEG (NEG); BLOOD, URINE MOD (NEG); GLUCOSE,URINE NEG (NEG); KETONE, URINE NEG (NEG); MUCUS URINE MANY /lpf (OCC); NITRITE,URINE NEG (NEG); SQUAMOUS EPITHELIAL CELL URINE 3 /hpf (0-5); URINE COLOR YELLOW (YELLW/STRAW); URINE LEUKOCYTE ESTERASE NEG (NEG)
[2017-10-04 02:43] LABS: ALBUMIN 3.6 GM/DL (3.4-5.0); ALT (GPT) 10 U/L (10-53); AST (GOT) 4 U/L (15-37); BICARBONATE 26.8 MEQ/L (21.0-32.0); BLOOD UREA NITROGEN 12 MG/DL (7-18); CALCIUM 8.4 MG/DL (8.5-10.1); CHLORIDE 107 MEQ/L (98-107); CREATININE 0.58 MG/DL (0.50-1.00); GLOMERULAR FILTRATION RATE 124 ML/MIN (>89); GLUCOSE,RANDOM 100 MG/DL (74-106); LIPASE 112 U/L (73-393); SODIUM (NA) 141 MEQ/L (136-145)
[2017-10-04 02:45] LABS: ALKALINE PHOSPHATASE 70 U/L (45-117); TOTAL BILIRUBIN ADULT 0.6 MG/DL (0.2-1.0); TOTAL PROTEIN 7.7 GM/DL (6.4-8.2)
--- NOTE | 2017-10-04 03:30 | RADRPT ---
EXAM DATE/TIME: 10/04/2017 03:10 [place] COMPARISON: No previous studies available for comparison. INDICATIONS : Abdomen pain. IV CONTRAST: 96 cc Omnipaque 350 (iohexol) IV ORAL CONTRAST: No oral contrast ingested. RADIATION DOSE: 10.50 CTDIvol (mGy) MEDICAL HISTORY : Hypertension. SURGICAL HISTORY : Cholecystectomy. ENCOUNTER: Initial ACUITY: 1 day PAIN SCALE: 6/10 LOCATION: Bilateral abdomen TECHNIQUE: Volumetric scanning of the abdomen and pelvis was performed. Using automated exposure control and ad justment of the mA and/or kV according to patient size, radiation dose was kept as low as reasonably achievable to obtain optimal diagnostic quality images. DICOM format image data is available electro nically for review and comparison. FINDINGS: Lung bases clear. No acute findings in the liver, spleen, adrenals, kidneys or pancreas. Small left r enal cyst. Previous cholecystectomy. No free fluid. No bowel obstruction. No adenopathy. No acute bony abnormalities. CONCLUSION: 1. No acute findings. Previous cholecystectomy. Margarito Richardson MD on October 04, 2017 at 3:20 Board Certified Radiologist. This report was verified electronically.
[2017-10-04] MEDS ORDERED: DIFL150T PO (03:42)
[2017-10-04] MEDS ORDERED: ZOFR4TAB3 SL (03:42)
[2017-10-04] MEDS ORDERED: MACR100C2 PO (03:42)
[2017-10-04] MEDS ORDERED: IBUPROFEN 600 MG TAB PO ONE (04:00)
== END 2017-10-04 04:17 | disposition home or self-care (01) ==
LOC: NEPE 01:23
DX: R10.9 Unspecified abdominal pain (principal); F31.9 Bipolar disorder, unspecified; I10 Essential (primary) hypertension; F43.10 Post-traumatic stress disorder, unspecified; Z72.0 Tobacco use
CPT/HCPCS: 74177; 80053; 81001; 83690; 84703; 85025; 96361; 96374; 99285; J2405; J7030; Q9967

== ENCOUNTER 2017-12-27 21:21 | Emergency (ER) | payer MEDICAID ==
[~2017-12-27] VITALS: Ht 170.2 cm; Wt 87.7 kg
[~2017-12-27 21:21] MED LIST changes: +DIFL150T PO; -PHEN0.4T PO; +ZOFR4TAB3 SL
[2017-12-27 21:27] VITALS: BP 180/115; PULSE 96; RESP 18; TEMP 98.7; O2SAT 100
--- NOTE | 2017-12-27 21:31 | PD ---
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 Patient believes she found a worm in her vagina. She states that she had some itching and then when she looked down there there was a white warm. She grabbed it and squished it. Denies any other symptoms. States she has not had any in her stool. Denies any abdominal pain. She is currently on her menses. She has no other symptoms to report. PFSH Past Medical History Arthritis: Yes Bipolar Disorder: Yes Anxiety: Yes Depression: Yes Diminished Hearing: No Hypertension: Yes Inguinal Hernia: Yes Musculoskeletal: Yes (DEGENERATIVE DISK DISORDER) Psychiatric: Yes (PTSD, AUDITORY PROCESSING DISORDER) : 5 Para: 2 Miscarriage: 1 : 2 Dilation and Curettage (D&C): Yes Past Surgical History Cholecystectomy: Yes Ear Surgery: Yes (TUBES ) Tonsillectomy: Yes (T&A) Tympanostomy Tube: Yes Social History Alcohol Use: No Tobacco Use: Yes Substance Use: No Allergies-Medications (Allergen,Severity, Reaction): Coded Allergies: Sulfa (Sulfonamide Antibiotics) (Unverified Allergy, Severe, 10/04/17) cefuroxime (Unverified Allergy, Severe, 10/04/17) ciprofloxacin (Unverified Allergy, Severe, 10/04/17) Reported Meds & Prescriptions Reported Meds & Active Scripts Active Diflucan (Fluconazole) 150 Mg Tab 150 Mg PO ONCE Zofran Odt (Ondansetron Odt) 4 Mg Tab 4 Mg SL Q6HR PRN Macrobid (Nitrofurantoin Monoh/Nitrofur Macro) 100 Mg Cap 100 Mg PO BID 5 Days Reported Buspirone (Buspirone HCl) 10 Mg Tab 10 Mg PO BID Metoprolol Tartrate 50 Mg Tab 50 Mg PO BID Lexapro (Escitalopram Oxalate) 5 Mg Tab 5 Mg PO DAILY [place] Carbonate 300 Mg Cap 300 Mg PO TID Labetalol (Labetalol HCl) 100 Mg Tab 100 Mg PO BID Amlodipine (Amlodipine Besylate) 5 Mg Tab 5 Mg PO DAILY Lisinopril-Hctz 10-12.5 Mg Tab 1 Tab PO DAILY Review of Systems Except as stated in HPI: all other systems reviewed are Neg Physical Exam Narrative GENERAL: Well-nourished, well-developed female patient in no acute distress SKIN: Focused skin assessment warm/dry. HEAD: Normocephalic. EYES: No scleral icterus. No injection or drainage. NECK: Supple, trachea midline. No JVD or lymphadenopathy. CARDIOVASCULAR: Regular rate and rhythm without murmurs, gallops, or rubs. RESPIRATORY: Breath sounds equal bilaterally. No accessory muscle use. GASTROINTESTINAL: Abdomen soft, non-tender, nondistended. No guarding. No rebound tenderness GENITOURINARY: Normal external genitalia without lesions or erythema. Vaginal vault with blood.. Cervical os was closed without drainage. No cervical motion tenderness. Uterus nontender and nonenlarged. Bilateral adnexa nontender without masses. Specifically I do not visualize any worms or wormlike items in or around the vagina RECTAL EXAM: No masses or tenderness, stool is brown. Specifically I do not see any wormlike creatures around or in the rectum MUSCULOSKELETAL: No cyanosis, or edema. BACK: Nontender without obvious deformity. No CVA tenderness. Data Data Last Documented VS Vital Signs Date Time Temp Pulse Resp B/P (MAP) Pulse Ox O2 Delivery O2 Flow Rate FiO2 12/27/17 21:27 98.7 96 18 180/115 (136) 100 Orders Orders Ed Discharge Order (12/27/17 21:52) [facility] Medical Decision Making Medical Screen Exam Complete: Yes Emergency Medical Condition: Yes Medical Record Reviewed: Yes Differential Diagnosis Formication versus helminth infestation versus psychosis versus vaginal foreign body Narrative Course 27-year-old female presents emergency department for evaluation of what she believes is electrolysis engineer her vagina. Patient appears without distress. She appears nontoxic. Abdominal exam is benign. I have assessed both the vagina externally , internally, and the rectum. I do not visualize any wormlike creatures or foreign bodies. I have offered reassurance. I have encouraged follow-up with an HOT BLAST WORKER as well as dispensing and measuring optician and her primary care provider. She agrees to return immediately with acute worsening symptoms. Diagnosis Primary Impression: Vaginal bleeding Additional Impression: Vaginal symptom Referrals: Scale Expert Patient Instructions: General Instructions, Menstruation (GEN) Additional Instructions: Follow-up with a metal trades instructor Follow-up with her primary care provider Return immediately with acute worsening symptoms Med/Other Pt SpecificInfo: No Change to Meds Disposition: 01 DISCHARGE HOME Condition: Stable Nette Cali Dec 27, 2017 21:31
== END 2017-12-27 22:29 | disposition home or self-care (01) ==
LOC: NEPD 21:21
DX: N93.9 Abnormal uterine and vaginal bleeding, unspecified (principal); F31.9 Bipolar disorder, unspecified; I10 Essential (primary) hypertension; F43.10 Post-traumatic stress disorder, unspecified; M19.90 Unspecified osteoarthritis, unspecified site; Z72.0 Tobacco use
CPT/HCPCS: 99282